=== PATIENT | female | born 1995 | race Caucasian/White ===

== ENCOUNTER 2020-01-12 13:22 | Outpatient (CLI) | payer OTHER, SELFPAY ==
--- NOTE | 2020-01-12 | US_ITS ---
WS: [id number] OBSTETRICAL ULTRASOUND COMPLETE HISTORY: SUPERVISION OF NORMAL IN MULTIGRAVIDA IN SECOND TR COMPARISON: None available. Single intrauterine gestation in Cephalic presentation. Cervix is Closed and normal length. Cervical length is 5.8 cm. Normal amount of amniotic fluid surrounds the fetus. Placenta: Posterior, no previa. Placenta ends 1.5 cm from the internal cervical os. Placenta grade 0 Heart: 148 BPM. Four chambers are identified. Anatomy: Intracranial structures and spine are normal. kidneys, stomach and urinary bladd er are unremarkable. Abdominal wall, three-vessel cord and cord insertion site are normal. 4 extremities are present. profile: Unremarkable. Gender: Female. measurements: BPD = 4.4 cm = 19w3d HC = 16.5 cm = 19w1d AC = 16.5 cm = 19w1d FL = 3.4 cm = 19w3d EFW: 295 g., Measurements are internally concordant. AGA by ultrasound: 19 weeks 3 days KWESI by ultrasound: 06/04/2020 US/US OB >= 14 weeks fetus [id number] IMPRESSION: 1. Single intrauterine gestation of 19 weeks 3 days with an EDC of 06/04/2020. 2. Unremarkable screening survey of anatomy. 3. Posterior low-lying placenta. Recommend follow-up late second or early thir d trimester to ensure placenta moves further away from the internal cervical os .
== END 2020-01-12 13:23 | disposition home or self-care (01) ==
LOC: RADOUTREAD 01-13 08:45
PROVIDERS: Family Provider Family Medicine; Visit Provider Family Medicine
DX: Z01.89 Encounter for other specified special examinations (principal)

== ENCOUNTER 2020-06-03 00:41 | Inpatient (IN) | payer OTHER, SELFPAY ==
[2020-06-02] VITALS (8 sets, daily range): BP systolic 0–138; BP diastolic 0–88; PULSE 67–81; TEMP 37.1; BMI 30.3
[2020-06-03] VITALS (113 sets, daily range): BP systolic 0–132; BP diastolic 0–86; PULSE 59–100; RESP 15–18; TEMP 36.6–37.1; O2SAT 88–100
[2020-06-03] MEDS: lactated ringers 1,000 ML 999 ML IV ×2 (01:43→03:10)
[2020-06-03] MEDS: fentaNYL 50 mcg/mL INJ 2mL IV (01:44)
[2020-06-03 01:58] LABS: Basophils % 0.2 %; Eosinophils % 0.1 %; Hematocrit 41.1 % (37.0-47.0); Hemoglobin 13.8 g/dL (11.5-15.3); Lymphocytes # 1.4 10^3/uL (0.8-4.8); Lymphocytes % 9.7 %; Mean Corpuscular HGB Conc 33.6 g/dL (30.0-36.0); Mean Corpuscular Hemoglobin 31.8 pg (28.0-34.0); Mean Corpuscular Volume 94.7 fL (81-99); Mean Platelet Volume 13.6 fL (7.4-10.4); Monocytes # 0.6 10^3/uL (0.2-0.9); Neutrophils # 12.65 10^3/uL (1.8-7.7); Neutrophils % 85.6 %; Nucleated Red Blood Cells % 0 %; Platelet Count 172 10^3/cmm (130-400); Positive M 1; Red Blood Count 4.34 10^6/uL (4.1-5.3); Red Cell Distribution Width 11.7 % (12.1-15.1); White Blood Count 14.8 10^3/uL (4.0-10.0)
[2020-06-03] MEDS: dextrose 5%-lactated ringers 1,000 ML 125 ML IV ×2 (03:16→10:49)
--- NOTE | 2020-06-03 03:19 | P.ANESASSM_ITS ---
Pre-Anesthetic Assessment Pre-Anesthetic Assessment: Height/Weight: Height 1.57 m Weight 75.296 kg Temp Pulse Resp BP Pulse Ox 98.7 F 71 16 110/64 99 06/02/20 22:33 06/03/20 03:17 06/03/20 01:44 06/03/20 03:17 06/03/20 03:16 Preop Diagnosis: IUP Proposed Procedure: Lumbar Labor Epidural Was Beta Tom taken within 24 hours: N/A Last intake: 1730 Social: Social History: No alcohol and No tobacco Exam: Pre-Anes Outpt Exam: alert, oriented x 3, clear to auscultation bilaterally and regular rate & rhythm Airway: Submandibular: WNL Cervical ROM: WNL MP: 2 Dentition: Full History/ROS: No significant history except as noted and No significant complaints Pulmonary: Pulmonary: None reported CV/HEM: CV/HEM: None reported : : None reported Hepatic: Hepatic: None reported GI: GI: None reported Metabolic: Metabolic: None reported Musc/skel: Musc/skel: None reported Neuropsych: Neuropsych: None reported Anesthetic Plan: ASA status: 2 Anesthesia: Regional (specify below) (epidural) Meds/Allergies Current Medications: Current Medications Generic Name Dose Route Start Last Admin Trade Name Freq PRN Reason Stop Dose Admin Fentanyl 25 - 100 mcg 06/03/20 00:56 06/03/20 01:44 Sublimaze IV 25 mcg Q1H PRN Administration SEVERE PAIN Dextrose/Lactated Ringer's 1,000 mls @ 125 m ls/hr 06/03/20 00:45 06/03/20 03:16 Dextrose 5%-Lact ated Ringers IV 125 mls/hr .Q8H BARBARA Administration Ropivacaine 200 mg in 100 mls @ 13 mls/hr 06/03/20 00:45 06/03/20 03:09 Naropin Premix EPIDURAL 13 mls/hr .Q7H42M BARBARA Administration Lactated Ringer's 1,000 mls @ 999 m ls/hr 06/03/20 00:44 06/03/20 03:10 Lactated Ringers IV 999 mls/hr .Q1H1M PRN Administration BLEEDING PFSH Anesthesia Female Reproductive History: : 2 Data Anesthesia CBC & Chem 7: 06/03/20 01:20 Other Labs: Laboratory Results - last 48 hr 06/03/20 01:20 WBC 14.8 H RBC 4.34 Hgb 13.8 Hct 41.1 MCV 94.7 MCH 31.8 MCHC 33.6 RDW 11.7 L Plt Count 172 MPV 13.6 H Neut % (Auto) 85.6 Lymph % (Auto) 9.7 [place] % (Auto) 4.0 Eos % (Auto) 0.1 Baso % (Auto) 0.2 Neut # (Auto) 12.65 H Lymph # (Auto) 1.4 [place] # (Auto) 0.6 Eos # (Auto) 0.0 Baso # (Auto) 0.0 Nucleated RBC % (auto) 0 Nucleated RBCs # 0.0 Cardiac Studies: No Data to Display Anesthesia Procedures Epidural: Time Out Performed: Yes Consents Signed: Procedure Consent Consent: from patient, risks and benefits reviewed and patient agrees to proceed Lumbar Level: L3-L4 Epidural position: sitting Epidural procedure: sterile prep of area, 1% lidocaine to numb the area (5), 18 g needle, negative for paresthesia passed, neg for paresthesia, test dose given, 1.5% xylocaine 1:200k epi (5), 0.2% Ropivacaine bolus ml (5), placed PCEA (5cc q10min x 3), no systemic response, sterile dressing applied, L.U.D. no apparent complications and 0.2% Ropiavacaine @ mls/hr (11) Additional Comments: Called to OB for epidural placement, pt evaluated and assessed for placement and explained procedure. pt not allergic to local anesthetics. had reaction to IV medication when wisdom teeth removed. Labs reviewed. Pt agrees to proceed. placed to 5cm in space and tolerated well. Bolused with epidural pump and VSS throughout per nursing chart. Last BP 113/65. Pain much improved.
[2020-06-03] MEDS: oxytocin 30 UNIT/500 ML BAG 600 UNIT IV (12:31)
--- NOTE | 2020-06-03 13:01 | PM.DELIVERY ---
Delivery Note: Date of delivery: June 03, 2020 Pre-Delivery Course: The patient had routine care at [facility]. There were no complications during the . Delivery: This is a 25-year-old at 39 weeks 5 days gestation who presented to labor and delivery complaining of regular contractions. She was making cervical change on her own and was admitted for expectant management. She received an epidural for pain management. She had artificial rupture of membranes with clear fluid approximately 2 hours prior to delivery. She had a normal spontaneous vaginal delivery of a viable female weight 7 pounds 7 ounces, 3360 g Apgars 9 and 9 over an intact perineum. The infant was suctioned at delivery and placed on the mother's chest. There was a lot of terminal meconium. The placenta was delivered grossly intact and normal to inspection. There was a second-degree right vaginal and perineal laceration that were sutured using 3-0 chromic. Mother and were doing well after delivery. A&P Assessment and plan (1) Normal spontaneous vaginal delivery: Routine care Status: Acute Coding Level of Care Code Acute Clinical Outcomes Manager for Chg Fwd Diagnoses Normal spontaneous vaginal delivery O80
[2020-06-03] MEDS: lanolin oint 7 gm 1 APPLIC TOPICAL (15:02)
[2020-06-03] MEDS: benzocaine-menthol 78 gm Canister 1 SPRAY TOPICAL (15:02)
[2020-06-03] MEDS: docusate sodium 100 mg Capsule PO (18:22)
[2020-06-04 01:09] LABS: Hematocrit 32.9 % (37.0-47.0); Hemoglobin 11.2 g/dL (11.5-15.3); Mean Corpuscular Hemoglobin 32.6 pg (28.0-34.0); Mean Corpuscular Volume 95.6 fL (81-99); Mean Platelet Volume 13.2 fL (7.4-10.4); Platelet Count 153 10^3/cmm (130-400); Positive M 1; Red Blood Count 3.44 10^6/uL (4.1-5.3); Red Cell Distribution Width 11.9 % (12.1-15.1); White Blood Count 16.4 10^3/uL (4.0-10.0)
[2020-06-04 05:55] VITALS: BP 107/68; PULSE 70; RESP 16; TEMP 36.7; O2SAT 96
[2020-06-04] MEDS: acetaminophen 325 mg Tablet 650 MG PO (07:19)
[2020-06-04] MEDS: prenatal vitamin Capsule 1 CAP PO (08:40)
[2020-06-04] MEDS: docusate sodium 100 mg Capsule PO (08:41)
[2020-06-04 10:10] VITALS: BP 111/73; PULSE 71; RESP 16; TEMP 36.8
--- NOTE | 2020-06-04 12:40 | P.DS_ITS ---
Discharge Providers MATERIALS ENGINEERING TECHNICIAN Date of Admission: 06/03/20 00:41 Date of Discharge: 06/04/20 Attending Provider at Admission: Delia Butterfield MD Attending Provider at Discharge: Delia Butterfield MD Primary Care Provider: Delia Butterfield MD Diagnoses at Discharge Discharge Diagnosis (1) Normal spontaneous vaginal delivery: Status: Acute Reason for Visit Reason for Visit: CONTRACTIONS Hospital Course Hospital Course: This is a 25-year-old G2 now P1 who was admitted in active [facility]. She had a normal spontaneous vaginal delivery of a viable female infant. After delivery mother and infant did well. Mother was ambulating, tolerating a regular diet, had average vaginal bleeding and was comfortable with discharge home. Information Peripartum Data: Infant Delivery Method: Vaginal Physical Exam HENMT: COMMON NORMALS: normocephalic HEAD & SCALP: normocephalic FACE & SINUS: normal facial exam Eye: COMMON NORMALS: Equal, round and reactive pupils present and EOMs intact bilaterally PUPIL: Yes Equal, round and reactive pupils present Chest: COMMONS NORMALS: normal inspection of the chest Resp: COMMON NORMALS: normal respiratory effort and clear to auscultation bilaterally AUSCULTATION: clear to auscultation bilaterally Cardio: COMMON NORMALS: regular rate and regular rhythm RATE: regular rate RHYTHM: regular rhythm GI: COMMON NORMALS: Soft to palpation and non-tender (Fundus firm U- 1) PALPATION: Yes Soft to palpation Extremity: COMMON NORMALS: negative for no calf tenderness GENERAL: Yes edema Psych: COMMON NORMALS: mental status grossly normal and Normal thought process present THOUGHT PROCESS: Normal thought process present Discharge Data Data Completed and Pending: Labs from last 24 hours 06/04/20 00:55 WBC 16.4 H RBC 3.44 L Hgb 11.2 L Hct 32.9 L MCV 95.6 MCH 32.6 MCHC 34.0 RDW 11.9 L Plt Count 153 MPV 13.2 H Vitals: Last Vital Signs Temp 98.2 F 06/04/20 10:10 Pulse 71 06/04/20 10:10 Resp 16 06/04/20 10:10 BP 111/73 06/04/20 10:10 Pulse Ox 96 06/04/20 05:55 Discharge Plan Discharge Patient Disposition: Home Condition: Stable Prescriptions: Continued RF: 0 Discharge Orders: Discharge Order (Routine); Ordered 06/04/20 Ordered By: Delia Butterfield Referrals: Delia Butterfield MD [Primary Care Provider] - 1 month (4 weeks) Discharge Diet: Usual diet Discharge Activity: Limit activity as instructed Discharge Attestations MATERIALS ENGINEERING TECHNICIAN Time Spent in Discharge Care*: less than 30 min Coding Level of Care Code Acute Forming Machine Adjuster for Chg Fwd Diagnoses Normal spontaneous vaginal delivery O80
[2020-06-04 14:15] VITALS: BP 125/78; PULSE 91; RESP 18; TEMP 36.7; O2SAT 98
[2020-06-04] MEDS: measles,mumps,rubella pf Vial (w/diluent) 0.5 ML SUBCUT (14:34)
[2020-06-04 15:10] VITALS: BP 125/78; PULSE 91; RESP 18; TEMP 36.7; O2SAT 98
== END 2020-06-04 15:10 | disposition home or self-care (01) | DRG 807 ==
LOC: OBGYN 06-04 07:30 → OPOB 06-04 08:07
PROVIDERS: Admitting Provider Family Medicine; PCP Family Medicine; Visit Provider Family Medicine
DX: O77.0 Labor and delivery complicated by meconium in amniotic fluid (principal); Z37.0 Single live birth; Z3A.39 39 weeks gestation of pregnancy; O70.1 Second degree perineal laceration during delivery
CPT/HCPCS: 12345; 36415; 51702; 59025; 59409; 85025; 85027; 90707; 96372; 96374; 99211; J2795; J3010

== ENCOUNTER 2022-12-05 09:08 | Outpatient (CLI) | payer BC, SELFPAY ==
--- NOTE | 2022-12-05 | US_ITS ---
WS: [id number] EARLY OBSTETRICAL ULTRASOUND (<14 WEEKS). HISTORY: CONFIRMED BY URINE COMPARISON: None available. Single intrauterine gestational sac is identified. Cardiac activity at 176 BPM. Kirwin-rump length quentin sures 1.7 cm which corresponds to a gestation of 8w1d. Normal-appearing yolk sac and amnion demonstra emma. No subchorionic hemorrhage. No free fluid. Normal size ovaries with no mass. Thick wall corpus luteum cyst RIGHT ovary measures 2.2 x 1.7 cm. Cervix is closed and normal length. US/US OB <= 14 weeks fetus [id number] IMPRESSION: 1. Single intrauterine gestation of 8 weeks 1 day with an EDC of 07/16/2023. 2. Normal cardiac activity.
== END 2022-12-05 09:09 | disposition home or self-care (01) ==
LOC: RAD 09:11
PROVIDERS: PCP Family Medicine; Visit Provider Family Medicine
DX: Z32.01 Encounter for pregnancy test, result positive (principal); Z3A.08 8 weeks gestation of pregnancy
CPT/HCPCS: 76801

== ENCOUNTER 2023-06-25 04:00 | Inpatient (IN) | payer BC, SELFPAY ==
[2023-06-25 04:00] VITALS: BMI 29.9
[2023-06-25] MEDS: oxytocin 30 UNIT/500 ML BAG 600 UNIT IV (05:40)
[2023-06-25 06:45] VITALS: BP 110/67; PULSE 83; RESP 16; TEMP 36.6
[2023-06-25 07:45] VITALS: BP 122/76; PULSE 99; RESP 14; TEMP 37; O2SAT 97
[2023-06-25] MEDS: prenatal vitamin Capsule 1 CAP PO (09:01)
[2023-06-25] MEDS: docusate sodium 100 mg Capsule PO (09:02)
[2023-06-25] MEDS: ibuprofen 800 mg tablet PO ×3 (09:02→21:28)
[2023-06-25 09:30] VITALS: BP 116/68; PULSE 95; O2SAT 97
[2023-06-25] MEDS: benzocaine-menthol 78 gm Canister 1 SPRAY TOPICAL (10:06)
[2023-06-25] MEDS: lanolin oint 7 gm 1 APPLIC TOPICAL (10:06)
[2023-06-25 15:00] VITALS: BP 108/69; PULSE 73; O2SAT 99
--- NOTE | 2023-06-25 18:03 | PM.OPHPUD ---
Labor & Delivery H&P Update Date of Procedure: June 25, 2023 Date H&P Performed: 06/22/23 Admission Diagnosis: IUP at [id number] gestation in active labor
--- NOTE | 2023-06-25 18:04 | P.PCNOB_ITS ---
Delivery Note: Date of delivery: June 25, 2023 Delivering Physician: Dr. Plaza Pre-Delivery Course: The patient had routine care at [facility]. There were no complications during the . Her dates were all consistent with her LMP, a 9-week ultrasound and her 21-week ultrasound. labs: Blood type A+, antibody negative, hepatitis B nonreactive, hepatitis C nonreactive, HIV nonreactive, rubella nonimmune, GC chlamydia negative, RPR nonreactive, UDS negative, Q low risk, she passed her glucose tolerance test, GBS testing is currently pending. Delivery: This is a 28-year-old G2 now P2 who presented to labor and delivery in active labor at 36 weeks 5 days gestation. She was being assessed in triage when she had a precipitous normal spontaneous vaginal delivery of a viable male infant. Dr. Plaza was on the floor at that time and stepped in to deliver the and the placenta. When I arrived the mother was doing skin to skin with the and there was a second-degree perineal laceration. This was anesthetized using 1% lidocaine and repaired using 3-0 chromic in a running fashion. I inspected the placenta which was very meconium stained but appeared grossly intact and normal to inspection. Estimated blood loss 200 mL . mother and infant were doing well after delivery. Coding Level of Care Code Acute Code for Chg Fwd Diagnoses
[2023-06-25 21:02] LABS: Basophils % 0.2 %; Hematocrit 38.2 % (36-47); Lymphocytes % 7.6 %; Mean Corpuscular HGB Conc 32.7 g/dL (30-55); Mean Corpuscular Hemoglobin 30.5 pg (27-33); Mean Corpuscular Volume 93.2 fl (85-98); Mean Platelet Volume 13.4 fL (7.4-10.4); Monocytes # 0.5 10^3/uL (0.2-0.9); Monocytes % 3.4 %; Neutrophils % 88.4 %; Nucleated Red Blood Cells % 0 %; Platelet Count 185 10^3/cmm (157-399); Red Cell Distribution Width 11.9 % (12.1-15.1); White Blood Count 13.22 10^3/uL (3.29-11.43)
[2023-06-25 21:25] LABS: Hematocrit 32.9 % (36-47); Mean Corpuscular HGB Conc 33.1 g/dL (30-55); Mean Corpuscular Hemoglobin 30.8 pg (27-33); Mean Corpuscular Volume 92.9 fl (85-98); Mean Platelet Volume 13.3 fL (7.4-10.4); Platelet Count 153 10^3/cmm (157-399); Red Blood Count 3.54 10^6/uL (3.85-5.65); White Blood Count 12.14 10^3/uL (3.29-11.43)
[2023-06-25 22:30] VITALS: BP 110/63; PULSE 80; RESP 16
[2023-06-26 00:30] VITALS: BP 111/71; PULSE 87; RESP 16; O2SAT 97
[2023-06-26 04:00] VITALS: BP 107/67; PULSE 83; RESP 15; TEMP 36.4; O2SAT 96
[2023-06-26] MEDS: ibuprofen 800 mg tablet PO ×3 (09:50→21:33)
[2023-06-26] MEDS: prenatal vitamin Capsule 1 CAP PO (09:50)
[2023-06-26] MEDS: docusate sodium 100 mg Capsule PO ×2 (09:52→18:16)
[2023-06-26 10:00] VITALS: BP 112/75; PULSE 90; RESP 14; TEMP 36.7; O2SAT 96
--- NOTE | 2023-06-26 13:17 | PM.PN ---
Subjective Subjective: Her bleeding has lightened up. She has no pain. She has no complaints. She is ambulating and tolerating a regular diet. Vitals/I&O/Wt Last Vital Signs Temp 98.1 F 06/26/23 10:00 Pulse 90 06/26/23 10:00 Resp 14 06/26/23 10:00 BP 112/75 06/26/23 10:00 Pulse Ox 96 06/26/23 10:00 O2 Del Method Room Air 06/26/23 10:00 Weight last 48 hrs Weight 74.389 kg Physical Exam Narrative: Alert and oriented, sitting up in bed, abdomen is soft and nontender, fundus is firm and U -2, extremities have slight edema but no calf tenderness Data 06/25/23 21:15 A&P Assessment and plan (1) Normal spontaneous vaginal delivery: Attestations Medical Necessity Statement*: Routine care Coding Level of Care Code Acute Code for Chg Fwd Diagnoses Normal spontaneous vaginal delivery O80
[2023-06-26 20:00] VITALS: BP 110/67; PULSE 72; RESP 18; TEMP 36.6; O2SAT 96
[2023-06-27 05:00] VITALS: BP 106/66; PULSE 70; RESP 16; TEMP 36.6; O2SAT 96
[2023-06-27] MEDS: ibuprofen 800 mg tablet PO (10:08)
[2023-06-27] MEDS: prenatal vitamin Capsule 1 CAP PO (10:08)
[2023-06-27] MEDS: docusate sodium 100 mg Capsule PO (10:08)
--- NOTE | 2023-06-27 10:45 | PM.DCS ---
Discharge Providers Date of Admission: 06/25/23 04:00 Date of Discharge: June 27, 2023 Attending Provider at Admission: Delia Butterfield MD Attending Provider at Discharge: Delia Butterfield MD Primary Care Provider: Delia Butterfield MD Diagnoses at Discharge Discharge Diagnosis (1) Normal spontaneous vaginal delivery: Status: Acute Reason for Visit Reason for Visit: contractions and rupture of membranes Hospital Course Hospital Course This is a 28-year-old G2 now P2 who presented in active labor. She had a precipitous normal spontaneous vaginal delivery of a viable male . She was 36 weeks 5 days gestation. The weighed 7 pounds 7 ounces and did well after delivery. Mother was ambulating, had decreased vaginal bleeding, did not have any abdominal tenderness and was comfortable with discharge home. Physical Exam Narrative: Sitting up in bed, heart regular rate and rhythm, lungs clear to auscultation bilaterally, abdomen is soft and nontender, fundus is firm and U -2, extremities have trace edema but no calf tenderness. Discharge Data Studies Completed and Pending Laboratory Results WBC 12.14 10^3/uL (3.29-11.43) H 06/25/23 21:15 RBC 3.54 10^6/uL (3.85-5.65) L 06/25/23 21:15 Hgb 10.90 g/dL (11.27-16.99) L 06/25/23 21:15 Hct 32.9 % (36-47) L 06/25/23 21:15 MCV 92.9 fl (85-98) 06/25/23 21:15 MCH 30.8 pg (27-33) 06/25/23 21:15 MCHC 33.1 g/dL (30-55) 06/25/23 21:15 RDW 12.0 % (12.1-15.1) L 06/25/23 21:15 Plt Count 153 10^3/cmm (157-399) L 06/25/23 21:15 MPV 13.3 fL (7.4-10.4) H 06/25/23 21:15 Neut % (Auto) 88.4 % 06/25/23 06:49 Lymph % (Auto) 7.6 % 06/25/23 06:49 [place] % (Auto) 3.4 % 06/25/23 06:49 Eos % (Auto) 0.0 % 06/25/23 06:49 Baso % (Auto) 0.2 % 06/25/23 06:49 Neut # (Auto) 11.70 10^3/uL (1.8-7.7) H 06/25/23 06:49 Lymph # (Auto) 1.0 10^3/uL (0.8-4.8) 06/25/23 06:49 [place] # (Auto) 0.5 10^3/uL (0.2-0.9) 06/25/23 06:49 Eos # (Auto) 0.0 10^3/uL (0.0-0.8) 06/25/23 06:49 Baso # (Auto) 0.0 10^3/uL (0.0-0.1) 06/25/23 06:49 Nucleated RBC % (auto) 0 % 06/25/23 06:49 Nucleated RBCs # 0.0 /100WBC 06/25/23 06:49 Vitals Last Vital Signs Temp 97.9 F 06/27/23 05:00 Pulse 70 06/27/23 05:00 Resp 16 06/27/23 05:00 BP 106/66 06/27/23 05:00 Pulse Ox 96 06/27/23 05:00 O2 Del Method Room Air 06/27/23 05:00 Discharge Plan Discharge Patient Disposition: Home Condition: Stable Prescriptions: Continued Discharge Orders: Discharge Order (Routine); Ordered 06/27/23 Ordered By: Delia Butterfield Referrals: Delia Butterfield MD [Primary Care Provider] - 1 month Discharge Diet: Usual diet Discharge Activity: Limit activity as instructed Patient Instructions: Depression (DC), Bleeding (DC), Preeclampsia and Eclampsia After Delivery (GEN), OB Discharge Report, OB Food/Drug Interaction Guide, OB Care at Home, Opioid Safety, OB Vaginal Deliveries Activity Restrictions/Additional Instructions: Nothing per vagina for 6 weeks Discharge Attestations Time Spent in Discharge Care*: less than 30 min Quality Metrics Clinical Quality Measures [ No reported AMI, CVA or VTE this stay] Coding Level of Care Code Acute Code for Chg Fwd Diagnoses Normal spontaneous vaginal delivery O80
[2023-06-27 10:50] VITALS: BP 109/69; PULSE 77; RESP 17; TEMP 36.9
[2023-06-27 12:25] VITALS: BP 109/69; PULSE 77; RESP 17; TEMP 36.9
== END 2023-06-27 12:35 | disposition home or self-care (01) | DRG 807 ==
LOC: OPOB 04:07 → OBGYN 04:09 → OPOB 18:12 → OBGYN 18:12
PROVIDERS: Admitting Provider Family Medicine; PCP Family Medicine; Visit Provider Family Medicine
DX: O60.14X0 Preterm labor third trimester with preterm delivery third trimester, not applicable or unspecified (principal); Z37.0 Single live birth; Z3A.36 36 weeks gestation of pregnancy; O70.1 Second degree perineal laceration during delivery; O77.0 Labor and delivery complicated by meconium in amniotic fluid
CPT/HCPCS: 36415; 59025; 59409; 85025; 85027; 99211; J2590